=== PATIENT | male | born 1955 | race African-American/Black ===

== ENCOUNTER 2016-12-22 10:16 | Day surgery (SDC) | payer OTHER ==
[~2016-12-22 10:16] MED LIST: Buffered Lidocaine 0.9% SYRIN* 5 ML/SYR SYRINGE INTRADERM ONE
[2016-12-22] MEDS ORDERED: Midazolam* 1 MG/ML 2 ML VIAL (2 MG) ONE (13:24)
[2016-12-22] MEDS ORDERED: Propofol* 10 MG/ML 20 ML BTL IV PUSH ONE (13:36)
[2016-12-22] MEDS ORDERED: Cyclopentolate 1% OPTH.SOL* 2 ML BTL ONE (13:56)
[2016-12-22] MEDS ORDERED: Phenylephrine 2.5% OPTH.SOL* 2 ML BTL ONE (13:56)
[2016-12-22] MEDS ORDERED: Lidocaine 1% MPF* 2 ML VIAL ONE (13:56)
[2016-12-22] MEDS ORDERED: Povidone Iodine 5% OPTH* 30 ML BTL ONE (13:56)
[2016-12-22] MEDS ORDERED: Proparacaine 0.5% OPHTH.SOL* 15 ML BTL ONE (13:56)
[2016-12-22] MEDS ORDERED: acetaZOLAMIDE TAB* 250 MG ONE (13:56)
[2016-12-22] MEDS ORDERED: Buffered Lidocaine 0.9% SYRIN* 5 ML/SYR SYRINGE ONE (13:56)
[2016-12-22] MEDS ORDERED: Flurbiprofen 0.03% OPTH.SOL* 2.5 ML BTL ONE (13:56)
[2016-12-22] MEDS ORDERED: Neomycin/Polymy/Dex OPTH.SUSP* MAXITROL 0.1% 5 ML ONE (13:56)
[2016-12-22] MEDS ORDERED: Lidocaine 1% MPF wEPI 200,000* 30 ML SDV ONE (13:56)
[2016-12-22 14:09] VITALS: BP 140/75
--- NOTE | 2016-12-22 15:08 | OP ---
DATE OF OPERATION: 12/22/2016 - [facility] DATE OF : 1955. SURGEON: Garrick Villarreal M.D. PREOPERATIVE DIAGNOSIS: Cataract right eye. POSTOPERATIVE DIAGNOSIS: Cataract right eye. OPERATIVE PROCEDURE: Phacoemulsification right eye with IOL. DESCRIPTION OF PROCEDURE: The patient was brought to the operating room after being given 1/2% Alcaine with epinephrine drops in the preoperative area. The eye was prepped and draped in the usual sterile fashion. Sterile drape and eyelid speculum were placed. Again, topical 1/2% Alcaine with epinephrine was given. A paracentesis incision was made at the 9 o'clock position with the No.75 blade. Clear cornea incision 2.2 x 2.2-mm was created at the 12 o'clock position starting at the anterior limbus using the 2.2-mm keratome. The anterior chamber was irrigated with 0.4 mL of 1% non-preservative intracameral lidocaine and filled with DisCoVisc. A capsulorrhexis was completed using the cystotome and the Utrata forceps. Hydrodissection was performed with balanced salt solution. The lens nucleus was removed with the Phacoemulsification handpiece without incident. Cortex was removed with the irrigation-aspiration handpiece. The capsular bag was re-inflated using DisCoVisc and an [id number] 17.5 implant was inserted with the shooter, oriented to the 91 degree meridian. The irrigation-aspiration handpiece was used to remove all residual DisCoVisc. The eye was refilled with balanced salt solution and the wound checked and found to be watertight. Topical Maxitrol drops were given. [id number]/[facility] #: [id number] [facility]
== END 2016-12-22 13:59 | disposition home or self-care (01) ==
LOC: OREAST 10:16
PROVIDERS: ATTEND Specialist
DX: H25.11 Age-related nuclear cataract, right eye (principal)
CPT/HCPCS: A9270-GY; J2001; J2250; J2704; V2787

== ENCOUNTER 2016-12-29 09:32 | Day surgery (SDC) | payer OTHER ==
[2016-12-29] MEDS ORDERED: Midazolam* 1 MG/ML 2 ML VIAL (2 MG) ONE (12:45)
[2016-12-29] MEDS ORDERED: Lidocaine 1% MPF* 2 ML VIAL ONE (13:06)
[2016-12-29] MEDS ORDERED: Neomycin/Polymy/Dex OPTH.SUSP* MAXITROL 0.1% 5 ML ONE (13:06)
[2016-12-29] MEDS ORDERED: Phenylephrine 2.5% OPTH.SOL* 2 ML BTL ONE (13:06)
[2016-12-29] MEDS ORDERED: Cyclopentolate 1% OPTH.SOL* 2 ML BTL ONE (13:06)
[2016-12-29] MEDS ORDERED: Buffered Lidocaine 0.9% SYRIN* 5 ML/SYR SYRINGE ONE (13:06)
[2016-12-29] MEDS ORDERED: Lidocaine 1% MPF wEPI 200,000* 30 ML SDV ONE (13:06)
[2016-12-29] MEDS ORDERED: Flurbiprofen 0.03% OPTH.SOL* 2.5 ML BTL ONE (13:06)
[2016-12-29] MEDS ORDERED: Proparacaine 0.5% OPHTH.SOL* 15 ML BTL ONE (13:06)
[2016-12-29] MEDS ORDERED: acetaZOLAMIDE TAB* 250 MG ONE (13:06)
[2016-12-29] MEDS ORDERED: Povidone Iodine 5% OPTH* 30 ML BTL ONE (13:06)
[2016-12-29 13:52] VITALS: BP 161/86
--- NOTE | 2016-12-30 08:49 | OP ---
DATE OF OPERATION: 12/29/16 - [facility] DATE OF : [birth year] SURGEON: Garrick Villarreal M.D. PREOPERATIVE DIAGNOSIS: Cataract, left eye. POSTOPERATIVE DIAGNOSIS: Cataract, left eye. OPERATIVE PROCEDURE: Phacoemulsification, left eye with IOL. DESCRIPTION OF PROCEDURE: The patient was brought to the operating room after being given 1/2% Alcaine with epinephrine drops in the preoperative area. The eye was prepped and draped in the usual sterile fashion. Sterile drape and eyelid speculum were placed. Again, topical 1/2% Alcaine with epinephrine was given. A paracentesis incision was made at the 3 o'clock position with the No.75 blade. Clear cornea incision 2.2 x 2.2-mm was created at the 6 o'clock position starting at the anterior limbus using the 2.2-mm keratome. The anterior chamber was irrigated with 0.4 mL of 1% non-preservative intracameral lidocaine and filled with DisCoVisc. A capsulorrhexis was completed using the cystotome and the Utrata forceps. Hydrodissection was performed with balanced salt solution. The lens nucleus was removed with the Phacoemulsification handpiece without incident. Cortex was removed with the irrigation-aspiration handpiece. The capsular bag was re-inflated using DisCoVisc and an [id number] implant was inserted with the shooter, oriented to the 140 degree meridian. The horizontal reference talavera were made with the patient in seated position in the preoperative area. Because the pupil was very small, a Malyugin ring was placed prior to capsulorrhexis and removed after insertion of the lens. The indication for complex cataract surgery was iris abnormality requiring pupil dilation device. The irrigation-aspiration handpiece was used to remove all residual DisCoVisc. The eye was refilled with balanced salt solution and the wound checked and found to be watertight. Topical Maxitrol drops were given. [id number]/[facility] #: [id number] [facility]
== END 2016-12-29 13:58 | disposition home or self-care (01) ==
LOC: OREAST 09:32
PROVIDERS: ATTEND Specialist
DX: H25.12 Age-related nuclear cataract, left eye (principal); H40.023 Open angle with borderline findings, high risk, bilateral; I10 Essential (primary) hypertension; J45.909 Unspecified asthma, uncomplicated; E78.5 Hyperlipidemia, unspecified
CPT/HCPCS: A9270-GY; J2001; J2250; V2787

== ENCOUNTER 2018-06-13 07:40 | Emergency (ER) | payer OTHER ==
[2018-06-13 07:52] VITALS: BP 134/70
--- NOTE | 2018-06-13 07:57 | UC ---
Ear Complaint HPI - HPI Summary HPI Summary: 62 yo gentleman c/o last several days of plugged ear sensation. Mild pain Left ear. No fever / chills. Mild sinus / cold sx (?), not sure. Denies sore throat, cough, GI issues. No h/a, no vis / aud issues other than above. No rash. - History of Current Complaint Chief Complaint: UCEar Stated Complaint: PLUGGED EARS Time Seen by Provider: 06/13/18 07:56 Hx Obtained From: Patient Pain Intensity: 5 - Allergies/Home Medications Allergies/Adverse Reactions: Allergies Allergy/AdvReac Type Severity Reaction Status Date / Time fish Allergy Swelling Uncoded 06/13/18 07:53 Of Face,Lips,& Throat nuts Allergy SWELLING Uncoded 06/13/18 07:53 IN LIPS & FACE PMH/Surg Hx/FS Hx/Imm Hx Previously Healthy: Yes - Surgical History Surgical History: Yes Surgery Procedure, Year, and Place: GALL BLADDER REMOVAL 1995, RIGHT DISLOCATED [place], 1989 - Family History Known Family History: Positive: Unknown - Social History Alcohol Use: None Substance Use Type: None Smoking Status (MU): Never Smoked Tobacco Review of Systems All Other Systems Reviewed And Are Negative: Yes Constitutional: Positive: Negative Skin: Positive: Negative Eyes: Positive: Other - see hpi ENT: Positive: Other - see hpi Respiratory: Positive: Negative Cardiovascular: Positive: Negative Gastrointestinal: Positive: Negative Genitourinary: Positive: Negative Motor: Positive: Negative Neurovascular: Positive: Negative Musculoskeletal: Positive: Negative Neurological: Positive: Negative Psychological: Positive: Negative Is Patient Immunocompromised?: No Physical Exam Triage Information Reviewed: Yes Appearance: Well-Appearing, Well-Nourished Vital Signs: Initial Vital Signs Temp 97.1 F 06/13/18 07:48 Pulse 60 06/13/18 07:48 Resp 14 06/13/18 07:48 BP 134/70 06/13/18 07:48 Pulse Ox 97 06/13/18 07:48 Vital Signs Reviewed: Yes Eye Exam: Normal ENT Exam: Other - TM's au - wilson, dull, rtx'd. Right TM nearly obscured by cerumen. EAC swollen. Mild cerumen L EAC. L EAC is swollen, minimal drainage , a little red ENT: Positive: Pharynx normal Neck exam: Normal Neck: Positive: Supple, Nontender, No Lymphadenopathy Respiratory Exam: Normal Respiratory: Positive: Chest non-tender, Lungs clear, Normal breath sounds, No respiratory distress, No accessory muscle use Cardiovascular Exam: Normal Cardiovascular: Positive: RRR, Pulses Normal, Brisk Capillary Refill Abdominal Exam: Normal Abdomen Description: Positive: Nontender Musculoskeletal Exam: Normal - gait steady, moves x 4 ext's Neurological Exam: Normal - grossly nonfocal except ears plugged Psychological Exam: Normal - conversing easily and appropriately Ear Complaint Course/Dx - Course Course Of Treatment: R ear flushed by RN. Reviewed COA / tx plan. Will f/u Dr. Whitney next week for recheck. Questions as posed answered to the best of my ability - Differential Dx/Diagnosis Provider Diagnosis: Cerumen impaction, Acute serous otitis media of both ears Discharge - Sign-Out/Discharge Documenting (check all that apply): Patient Departure All imaging exams completed and their final reports reviewed: No Studies - Discharge Plan Condition: Stable Disposition: HOME Patient Education Materials: Cerumen Impaction (ED), Serous Otitis Media (ED), Antihistamine/Decongestant (By mouth) Referrals: Garrick Whitney MD [Primary Care Provider] - Additional Instructions: Call Dr. Whitney's office - please schedule follow up for next week recheck. Seek medical attention for worse or new problems. Blood pressure 134/70. You may use antihistamine / decongestant (over the counter) once daily, but no more than 3 days. - Billing Disposition and Condition Condition: STABLE Disposition: Home
== END 2018-06-13 08:25 | disposition home or self-care (01) ==
LOC: UCEAST 07:40
DX: H61.23 Impacted cerumen, bilateral (principal); H65.03 Acute serous otitis media, bilateral
CPT/HCPCS: 99213; G0463